=== PATIENT | male | born 1970 | race Caucasian/White ===

== ENCOUNTER → 2022-06-10 10:35 | Outpatient (BNVA) | payer OTHER, SELFPAY | PROVIDERS: PCP Family Medicine; Visit Provider Internal Medicine Cardiovascular Disease | DX: I10 Essential (primary) hypertension (principal); Q24.5 Malformation of coronary vessels; F17.210 Nicotine dependence, cigarettes, uncomplicated | CPT/HCPCS: 99213 ==

== ENCOUNTER → 2023-05-26 08:48 | Outpatient (BNVA) | payer OTHER, SELFPAY | PROVIDERS: PCP Family Medicine; Visit Provider Internal Medicine | DX: I10 Essential (primary) hypertension (principal); Z72.0 Tobacco use; Q24.5 Malformation of coronary vessels; E78.5 Hyperlipidemia, unspecified | CPT/HCPCS: 99214 ==

== ENCOUNTER → 2024-05-03 08:58 | Outpatient (BNVA) | payer OTHER, SELFPAY | PROVIDERS: PCP Family Medicine; Visit Provider Nurse Practitioner Family | DX: I10 Essential (primary) hypertension (principal); F17.210 Nicotine dependence, cigarettes, uncomplicated | CPT/HCPCS: 99213 ==

== ENCOUNTER → 2025-04-29 15:04 | Outpatient (BNVA) | payer OTHER, SELFPAY | PROVIDERS: PCP Family Medicine; Visit Provider Internal Medicine | DX: Q24.5 Malformation of coronary vessels (principal); I10 Essential (primary) hypertension; E78.5 Hyperlipidemia, unspecified; Z72.0 Tobacco use; R06.02 Shortness of breath | CPT/HCPCS: 99214 ==

== ENCOUNTER 2025-05-30 09:15 | Outpatient (CLI) | payer OTHER, SELFPAY ==
--- NOTE | 2025-05-30 10:00 | USCV_ITS ---
Jesse Hercules Age: 55 Gender: M : 1970 Exam Date: 05/30/2025 09:42 Ordering Phys: Casey Stewart M.D ([email or web address]) Technologist: THOM [place] [facility] [place]: SoB BP: 130 / 80 HR: 63 Rhythm: Sinus Technical Quality: Adequate MEASUREMENTS (Male / Female) Normal Values 2D ECHO LV Diastolic Diameter PLAX 4.6 cm 4.2 - 5.9 / 3.9 - 5.3 cm IVS Diastolic Thickness 0.9 cm 0.6 - 1.0 / 0.6 - 0.9 cm IVS Systolic Thickness 1.6 cm LVPW Diastolic Thickness 1.1 cm 0.6 - 1.0 / 0.6 - 0.9 cm LVPW Systolic Thickness 1.5 cm LVOT Diameter 2.0 cm LV Ejection Fraction 2D Teich 56.9 % LV Ejection Fraction MOD 4C 55.0 % LV Ejection Fraction MOD 2C 60.4 % LV Ejection Fraction 2C AL 59.5 % LA Diameter 2.4 cm RA Systolic Volume 4C AL 34.3 ml RA Systolic Volume 4C MOD 31.3 ml LA Sys Volume AL 28.1 cm cubed LA Sys Volume Index AL 13.7 cm cubed/m squared Aorta at Sinotubular Diameter 2.9 cm IVC Diameter 1.7 cm M-MODE LA Ao Ratio MM 1.3 AV Cusp Separation MM 2.1 cm DOPPLER AV Peak Velocity 110.0 cm/s LVOT Peak Velocity 63.0 cm/s AV Area Cont Eq vti 1.4 cm squared AV Area Cont Eq pk 1.8 cm squared MV Peak Velocity 72.0 cm/s MV Area PHT 4.6 cm squared Mitral E to A Ratio 0.9 TR Peak Velocity 124.0 cm/s TR Peak Gradient 6.2 mmHg TV Peak E Velocity 66.0 cm/s PV Peak Velocity 76.0 cm/s FINDINGS Left Ventricle Normal left ventricular size and systolic function, EF 55-60%. No regional wall motion abnormalities. Right Ventricle Normal in size and function Right Atrium Normal in size Left Atrium Normal in size. In some views, an echogenic structure is seen in the left atrium, likely represents artifact vs calcification. Mitral Valve Structurally normal mitral valve. Mild mitral valve regurgitation. Aortic Valve Structurally normal aortic valve. No aortic valve stenosis. Tricuspid Valve Insufficient TR jet to calculate RVSP Pulmonic Valve Not well visualized Pericardium Normal Aorta Normal in size IVC Appears to be normal CONCLUSIONS LV systolic function is normal with EF of 55-60% In some views, an echogenic structure is seen in the left atrium, likely represents artifact vs calcification. Clinical correlation is required. Mild mitral valve regurgitation. Casey Stewart MD (Electronically Signed) Final Date: 08 June 2025 13:41 S
== END 2025-05-30 09:16 | disposition home or self-care (01) ==
LOC: RAD 09:16
PROVIDERS: PCP Family Medicine; Visit Provider Internal Medicine
DX: R06.02 Shortness of breath (principal); R93.1 Abnormal findings on diagnostic imaging of heart and coronary circulation; I34.0 Nonrheumatic mitral (valve) insufficiency
CPT/HCPCS: 93306